=== PATIENT | male | born 1960 | race Caucasian/White ===

== ENCOUNTER 2023-12-21 18:55 | Emergency (ER) | payer OTHER ==
[~2023-12-21] VITALS: Ht 170.2 cm; Wt 56.7 kg
[2023-12-21 18:57] VITALS: BP 75/49; PULSE 139; RESP 24; O2SAT 83
[2023-12-21] MEDS ORDERED: DEXTROSE 50% 50 ML SYR IVP ONE ×2 (19:19→19:35)
[2023-12-21] MEDS ORDERED: CODE BLUE PARTICIPANT 1 EA MISC MC ONE (19:19)
[2023-12-21] MEDS ORDERED: CALCIUM CHLORIDE 10% 100 MG/ML SYR IVP ONE (19:35)
== END 2023-12-21 19:31 ==
LOC: MED 18:55
DX: I46.9 Cardiac arrest, cause unspecified (principal); I11.0 Hypertensive heart disease with heart failure; N28.9 Disorder of kidney and ureter, unspecified; Z79.899 Other long term (current) drug therapy
CPT/HCPCS: 92950; 93005; 99291